=== PATIENT | female | born 2000 | race Caucasian/White ===

== ENCOUNTER 2020-10-03 00:03 | Inpatient (IN) ==
[2020-10-03] MEDS ORDERED: BUTORPHANOL TARTRATE 2 MG/ML VIAL IV PRN ×2 (00:12)
[2020-10-03] MEDS ORDERED: OXYTOCIN/0.9 % SODIUM CHLORIDE 30 UNITS/500 ML BAG IV ONE ×2 (00:12→17:35)
[2020-10-03] MEDS ORDERED: RINGER'S SOLUTION,LACTATED 1,000 ML IV ONE (00:12)
[2020-10-03] MEDS ORDERED: LIDOCAINE HCL 50 ML VIAL PERI PRN (00:12)
[2020-10-03] MEDS ORDERED: ONDANSETRON 4 MG TAB.RAPDIS PO PRN (00:12)
[2020-10-03] MEDS ORDERED: RINGER'S SOLUTION,LACTATED 1,000 ML IV PRN (00:12)
[2020-10-03] MEDS: MISOPROSTOL 100 MCG TABLET VG PRN ×2 (01:11→07:10)
--- NOTE | 2020-10-03 11:11 | HP ---
Chief Complaint - Chief Complaint Date of Service: 10/03/20 Time of Service: 11:06 Chief Complaint: Elective induction History of Present Illness: 20 year old at 39w 0d who presents to L&D for an elective IOL. She reports regular ctx s/p 2 doses of cytotec. She denies vb or lof. Fetus is active. Medical History (Last Reviewed 10/03/20 @ 11:07 by Joana Ricketts MD) Gastritis Hx of molluscum contagiosum genitalia- cryo tx Irritable bowel syndrome (IBS) Anxiety Depression Surgical History: Surgical History (Last Reviewed 10/03/20 @ 11:07 by Joana Ricketts MD) Hx of appendectomy Family History: Family History (Last Reviewed 10/03/20 @ 11:07 by Joana Ricketts MD) Mother Alive and well Father Alive and well Other No pertinent family history Social History: (Last Reviewed 10/03/20 @ 11:07 by Joana Ricketts MD) Social History: adopted: No adopted comment: removed from mothers custody because of drug use Marital status: single household members: significant other current occupational status: unemployed Highest level of school completed/degree received: 11th grade Sexually Active: Yes Service: No Tobacco: Smoking Status: Never smoker Alcohol: alcohol intake: current alcohol intake frequency: holiday/special occasion details: none since +upt Substance Use: substance use type: does not use Dietary Habits: caffeine: Yes Type: carbonated beverages daily servings of milk/calcium: 2-4 Exercise: Physical activity type: walking frequency: 3-4 times per week Review Of Systems (GEN) - Review of Systems Generalized/Overall Review: Present: No Symptoms Reported EENTM: Present: No Symptoms Reported Genitourinary: Present: Other - contractions Immunizations: IMMUNIZATION HX Immunizations Up to Date Yes History of Influenza Vaccine Yes Hx Pneumococcal Vaccination No Allergies/Adverse Reactions: Allergies Allergy/AdvReac Type Severity Reaction Status Date / Time No Known Allergies Allergy Verified 10/03/20 00:13 Home Medications: HOME MEDICATIONS prenat.vits,rylee,zhf-pwmg-xtmow 1 tab PO DAILY 03/05/20 [Last Taken Unknown] breast pump See Rx Instructions .ROUTE .MEDSUPPLY #1 ea 05/26/20 [Last Taken Unknown] ascorbic acid (vitamin C) 250 mg tablet 250 mg PO BID 08/04/20 [Last Taken Unknown] ferrous sulfate 325 mg (65 mg iron) tablet 325 mg PO BID tab 08/04/20 [Last Taken Unknown] Exam - Exam Vital Signs: 36.5 117/71 77 18 97% Constitutional: Present: Alert, Oriented x3, Cooperative, No distress ENT Exam: Present: hearing grossly normal Eye Exam: bilateral eye: normal inspection Neck: Present: normal inspection Back Exam: Present: normal inspection Breasts: Present: Exam deferred Respiratory: Present: lungs clear, normal breath sounds, no respiratory distress Cardiovascular/Chest: Present: regular rate, rhythm Abdomen: Present: soft, nontender, nondistended /Rectal: Present: Other - 3/80/-1 AROM for clear fluid Extremity: Present: non-tender, no calf tenderness Skin Exam: Present: normal color, warm/dry, no cyanosis Neurologic: Present: alert, normal mood/affect, oriented x 3 Appearance: Present: appropriate appearance, appropriate insight, neat, no memory impairment Eye contact: Present: cooperative, good eye contact, normal speech Thoughts: Present: normal thought pattern Diagnostic Studies: Laboratory Results Blood Type A Positive 10/03/20 00:53 Antibody Screen Negative 10/03/20 00:53 Assessment/Plan - Narrative Narrative: 20 year old at 39w 0d 1. Elective IOL: s/p two doses of cytotec. AROM for augmentation of labor. Start pitocin when able 2. GBS negative: prophylaxis not indicated - Assessment/Plan (1) Elective induction of labor planned Problem: Acute (2) 39 weeks gestation of Problem: Acute (3) Rubella immune Problem: Acute (4) Rh(D) positive Problem: Acute
[2020-10-03] MEDS ORDERED: NALOXONE HCL 1 MG/1 ML SYRG IV PRN (11:15)
[2020-10-03] MEDS ORDERED: ONDANSETRON HCL/PF 2 MG/ML VIAL IV PRN (11:15)
[2020-10-03] MEDS ORDERED: BUPIVACAINE HCL/0.9 % NACL/PF 250 ML EP PRN (11:15)
[2020-10-03] MEDS ORDERED: BUPIVACAINE HCL/PF 30 ML VIAL EP SCH (11:15)
--- NOTE | 2020-10-03 11:26 | ANES ---
Anesthesia Pre Procedure Eval HOME MEDICATIONS prenat.vits,rylee,gcr-bovu-yxtyd 1 tab PO DAILY 03/05/20 [Last Taken Unknown] breast pump See Rx Instructions .ROUTE .MEDSUPPLY #1 ea 05/26/20 [Last Taken Unknown] ascorbic acid (vitamin C) 250 mg tablet 250 mg PO BID 08/04/20 [Last Taken Unknown] ferrous sulfate 325 mg (65 mg iron) tablet 325 mg PO BID tab 08/04/20 [Last Taken Unknown] Allergies/Adverse Reactions: Allergies Allergy/AdvReac Type Severity Reaction Status Date / Time No Known Allergies Allergy Verified 10/03/20 00:13 - Planned Procedure Planned Procedure: Labor Epidural Medication List Reviewed:: Yes Allergies Verified: Yes Medical History (Last Reviewed 10/03/20 @ 11:25 by Bob Cline CRNA) Gastritis Hx of molluscum contagiosum genitalia- cryo tx Irritable bowel syndrome (IBS) Anxiety Depression Surgical History (Last Reviewed 10/03/20 @ 11:25 by Bob Cline CRNA) Hx of appendectomy Family History (Last Reviewed 10/03/20 @ 11:25 by Bob Cline CRNA) Mother Alive and well Father Alive and well Other No pertinent family history - Anesthesia Assessment and Plan ASA Class: PS, II Anesthesia Type Plan: Epidural
--- NOTE | 2020-10-03 11:58 | ANES ---
Anesthesia Procedure Note Procedure Note: ANESTHESIA PROCEDURE NOTE Date of Procedure: 10/03/2020. Time of procedure: 1140. Performed by: Bob Cline CRNA Business Services Representative: None. Preprocedure diagnosis: Active labor. Post procedure diagnosis: Same. Procedure: Insertion of labor epidural. Indications: The patient is a 20-year-old female in active labor requesting labor epidural for pain management. Findings: See below. Details of the procedure: The patient was placed in a sitting position. DuraPrep as well as Betadine swabs X3 was applied to the patient's back. Patient was then draped in a sterile fashion. Lidocaine 1% was infiltrated to the skin and subcutaneous tissues at the level of the L3-4 interspace. The epidural space was identified using a 18-gauge Tuohy needle with [id number] technique. Epidural catheter was inserted to a depth of 8 centimeters at skin. Negative test dose was elicited using 3 mL of 1.5% preservative-free lidocaine plus epinephrine 1 200,000. The epidural catheter was then taped and secured in place. A loading dose of 8 mL of 0.25% preservative-free bupivacaine was administered to the epidural catheter after negative aspiration for blood and CSF. EBL: Minimal. Fluids: N/A. Specimen: N/A. Post procedure condition: The patient tolerated the procedure well. No complications were noted. Thank you for this consultation. Bob Cline CRNA
--- NOTE | 2020-10-03 11:58 | ANES ---
Post Anesthesia Assessment - Vital Signs Airway Patency: Normal - Mental Status Level Of Consciousness: Awake - N/V Assessment Nausea/Vomiting Presence: None Dehydration:: No
--- NOTE | 2020-10-03 17:28 | OR ---
Vacuum-Assist Vaginal Delivery Date:: 10/03/20 Time:: 16:48 Pre Op Diagnosis/Indication for use:: Suspicion of compromise Heart Rate Interpretation:: Nonreassuring EFW:: 3300 Station:: + 5 Position of the head: OA Cervix:: The cervix was completely dilated and effaced. Maternal- size appropriate for application. The bladder was emptied. Counseling:: Patient counseling: Indications discussed and questions answered. The patient consented to operative delivery. - Details of Procedure: Cup Placement:: Flexion point identified. Cup choice appropriate for application site. Maternal tissue excluded from vacuum cup. Station at application:: + 5 Position:: OA Anesthesia Type: Epidural Laceration Type:: None - Vacuum Application: Vacuum Used:: Mushroom Total Time of vacuum applications (minutes):: 1 - 45 seconds only Maximum vacuum achieved: cm H Number of pulls/contractions:: 2 Number of involuntary releases:: 1 Vacuum event:: The vacuum was reduced between contractions. There was advancement in station with each pull. - Post Procedure Eval: Infant Sex: Male Weight (Grams): 3,120 Delivery Date: 10/03/20 Delivery Time: 16:48 Score 1 min: 7 Score 5 min: 9 Extraction successful:: Yes Amniotic Fluid Color: Clear Placenta Delivery: Spontaneous injury/anomalies:: No Maternal EBL:: 100 mL Shoulder Dystocia:: No Nuchal Cord: Around neck x1, tight - cut at the perineum
[2020-10-03] MEDS ORDERED: SENNOSIDES 8.6 MG TABLET PO PRN (17:35)
[2020-10-03] MEDS ORDERED: BENZOCAINE/MENTHOL 81 SPRAY CAN TP PRN (17:35)
[2020-10-03] MEDS ORDERED: HYDROCORTISONE 30 APPL TUBE TP PRN (17:35)
[2020-10-03] MEDS ORDERED: GLYCERIN/WITCH HAZEL LEAF 40 APPL BOX TP PRN (17:35)
[2020-10-03] MEDS ORDERED: HYDROcodone/ACETAMINOPHEN 1 EACH TABLET PO PRN (17:35)
[2020-10-03] MEDS ORDERED: diphenhydrAMINE HCL 25 MG CAPSULE PO PRN (17:35)
[2020-10-03] MEDS ORDERED: BISACODYL 10 MG SUPP.RECT RC PRN (17:35)
[2020-10-03] MEDS: IBUPROFEN 800 MG TABLET PO PRN (18:54)
[2020-10-03] MEDS: DOCUSATE SODIUM 100 MG CAPSULE PO SCH (20:46)
[2020-10-04] MEDS: IBUPROFEN 800 MG TABLET PO PRN ×3 (01:37→18:44)
[2020-10-04] MEDS: HYDROcodone/ACETAMINOPHEN 1 EACH TABLET PO PRN ×3 (01:39→21:47)
[2020-10-04] MEDS: DOCUSATE SODIUM 100 MG CAPSULE PO SCH ×2 (08:55→21:01)
--- NOTE | 2020-10-04 09:50 | PN ---
Subjective - Date and Time Seen Date: 10/04/20 Time: 09:46 Subjective Narrative: Patient without complaints Objective Objective Narrative: See vital signs - Review of Systems Generalized/Overall Review: Reports: No Symptoms Reported Abdominal: Reports: Other - vaginal bleeding Genitourinary Symptoms: Reports: No Symptoms Reported Misc: All systems neg except as marked - Vitals Vitals: Last Vital Signs Temp 36.4 C 10/04/20 07:09 Pulse 71 10/04/20 07:09 Resp 18 10/04/20 07:09 BP 112/63 10/04/20 07:09 Pulse Ox 99 10/04/20 07:09 - Exam Constitutional: Present: Alert, Oriented x3, Cooperative, No distress ENT Exam: Present: hearing grossly normal Neck: Present: normal inspection Abdomen: Present: soft, nontender, nondistended - fundus is firm Extremity: Present: non-tender, no calf tenderness Skin Exam: Present: normal color, warm/dry, no cyanosis Neurologic: Present: alert, normal mood/affect, oriented x 3 Appearance: Present: appropriate appearance, appropriate insight, neat, no memory impairment Eye contact: Present: cooperative, good eye contact, normal speech Thoughts: Present: normal thought pattern Cauti Physician Documentation - Urinary Catheter Management Urethral (Ibarra) Urethral Indwelling: No Date of Insertion: 10/03/20 Time of Insertion: 12:15 Date of Removal: 10/03/20 Time of Removal: 16:01 Assessment/Plan Plan Narrative: PPD 1 s/p Doing well Discharge tomorrow - Problems/Diagnosis (1) Elective induction of labor planned Problem: Acute (2) 39 weeks gestation of Problem: Acute (3) Rubella immune Problem: Acute (4) Rh(D) positive Problem: Acute
[2020-10-05] MEDS: IBUPROFEN 800 MG TABLET PO PRN ×2 (05:52→12:20)
--- NOTE | 2020-10-05 09:07 | PN ---
Subjective - Date and Time Seen Date: 10/05/20 Time: 09:06 Subjective Narrative: Patient without complaints Objective Objective Narrative: See vital signs - Review of Systems Generalized/Overall Review: Reports: No Symptoms Reported Genitourinary Symptoms: Reports: Other - vaginal bleeding Misc: All systems neg except as marked - Vitals Vitals: Last Vital Signs Temp 36.3 C 10/05/20 01:26 Pulse 62 10/05/20 01:26 Resp 16 10/05/20 01:26 BP 119/81 10/05/20 01:26 Pulse Ox 100 10/05/20 01:26 - Exam Constitutional: Present: Alert, Oriented x3, Cooperative, No distress Abdomen: Present: soft, nontender, nondistended - fundus is firm Extremity: Present: non-tender, no calf tenderness Skin Exam: Present: normal color, warm/dry, no cyanosis Cauti Physician Documentation - Urinary Catheter Management Urethral (Ibarra) Urethral Indwelling: No Date of Insertion: 10/03/20 Time of Insertion: 12:15 Date of Removal: 10/03/20 Time of Removal: 16:01 Assessment/Plan Plan Narrative: PPD 2 s/p Doing well Discharge today - Problems/Diagnosis (1) Elective induction of labor planned Problem: Acute (2) 39 weeks gestation of Problem: Acute (3) Rubella immune Problem: Acute (4) Rh(D) positive Problem: Acute
--- NOTE | 2020-10-05 09:09 | DS ---
OB Discharge Summary (1) Elective induction of labor planned Status: Acute (2) 39 weeks gestation of Status: Acute (3) Rubella immune Status: Acute (4) Rh(D) positive Status: Acute Delivery Date: 10/03/20 Delivery Time: 16:48 :: 1 Para:: 1 Gestational weeks:: 39 Gestational days:: 0 Intrapartum Procedures: Anesthesia - Epidural, Vacuum-Assisted Procedures: None /OP Complications: No Complications Discharge Diagnosis: Term -Delivered - Discharge Information Date of Discharge: 10/05/20 Hospital Course: The patient presented for an elective IOL. Delivery and course uncomplicated. Discharge Location: Home Disposition: Home self-care Referrals: Joana Ricketts MD [Primary Care Provider] - Activity on Discharge:: Activity as tolerated, Pelvic Rest Discharge Diet: General/regular food Complete Home Medications List: Complete Home Medication List: prenat.vits,rylee,ldw-gyhl-ymsbr 1 tab PO DAILY 03/05/20 breast pump See Rx Instructions .ROUTE .MEDSUPPLY #1 ea 05/26/20 - Plan Discharge to:: Home Comment:: Routine Discharge Instructions Follow up in office in:: Other - 4 weeks - [place] Information Weight (Grams): 3,120 Infant Sex: Male Score 1 min: 7 Score 5 min: 9 Complications: Multiple Variable Decels
[2020-10-05] MEDS: DOCUSATE SODIUM 100 MG CAPSULE PO SCH (09:51)
[2020-10-05 09:59] VITALS: BP 110/65
== END 2020-10-05 15:30 | disposition home or self-care (01) | DRG 807 ==
LOC: OB 00:03
PROVIDERS: ADMIT Obstetrics & Gynecology; ATTEND Obstetrics & Gynecology